=== PATIENT | male | born 1965 | race Caucasian/White ===

== ENCOUNTER 2017-11-13 11:13 | Emergency (ER) | payer BC ==
[~2017-11-13] VITALS: Ht 167.6 cm; Wt 90.7 kg
[~2017-11-13 11:13] MED LIST: ASPIR 8181 MG PO; ATORVASTATIN CA40 MG PO; FOLIC ACID1 MG PO; PROTONIX40 M1 PO; PROZAC20 MG PO; TOPROL XL100 MG PO; TOPROL XL25 MG PO; VITAMIN B-1100 M1 PO
[2017-11-13 11:46] LABS: ABSOLUTE LYMPHOCYTES 2.4 thou/uL (0.8-5.3); ABSOLUTE MONOCYTES 0.4 thou/uL (0.0-1.2); ABSOLUTE NEUTROPHILS 3.6 thou/uL (1.6-8.1); BASOPHILS 0.7 %; EOSINOPHILS 0.6 %; HEMATOCRIT 43.2 % (42.0-52.0); HEMOGLOBIN 14.5 gm/dL (14.0-18.0); LYMPHOCYTES 37.3 %; MCHC 33.6 g/dL (28.0-37.0); MCV 86.1 fL (80.0-100.0); MONOCYTES 5.8 %; MPV 6.8 fl. (7.2-11.1); NUCLEATED RBCS 0 /100WBC; PLATELET COUNT* 327 thou/uL (150-400); POLYS 55.6 %; RBC 5.01 mil/uL (4.50-6.00); RDW-CV 14.2 % (10.5-14.5); WBC 6.5 thou/uL (4.0-11.0)
[2017-11-13 11:52] LABS: CALCIUM 8.7 mg/dL (8.5-10.1); CREATININE 1.1 mg/dL (0.6-1.3); POTASSIUM 3.2 mmol/L (3.5-5.1)
[2017-11-13 11:57] LABS: ALBUMIN 3.9 g/dL (3.4-5.0); TOTAL BILIRUBIN 0.3 mg/dL (<0.1-1.0); TOTAL PROTEIN 7.3 g/dL (6.4-8.2)
[2017-11-13 12:11] LABS: ALCOHOL 299 mg/dL (<10); SALICYLATE < 2.8 mg/dL (2.8-20.0)
[2017-11-13 12:13] LABS: ACETAMINOPHEN < 2 ug/mL (10-30)
[2017-11-13 13:26] LABS: URINE BILIRUBIN NEGATIVE (Negative); URINE BLOOD NEGATIVE (Negative); URINE CLARITY CLEAR; URINE COLOR YELLOW; URINE GLUCOSE-RANDOM NEGATIVE (Negative); URINE KETONES NEGATIVE (Negative); URINE LEUKOCYTES-REFLEX NEGATIVE (Negative); URINE NITRITE-REFLEX NEGATIVE (Negative); URINE PROTEIN NEGATIVE (Negative); URINE UROBILINOGEN 0.2 E.U./dl (0.2-1.0)
[2017-11-13 13:34] LABS: AMP/METHAMP Negative (Negative); BARBITURATES Negative (Negative); BENZODIAZEPINES Negative (Negative); COCAINE Negative (Negative); METHADONE Negative (Negative); OPIATES Negative (Negative); PCP Negative (Negative); THC Negative (Negative)
--- NOTE | 2017-11-13 16:34 | EKG ---
[place] [address] ELECTROCARDIOGRAM REPORT Name: BARBARA BRICEÑO Room: [facility]#: [id number] Admission: 11/13/17 Attend Phys: Discharge: Date of : 69 Report #: [id number] THIS REPORT FOR: //name// [facility] ED Test Date: 2017-11-13 Test Time: 11:21:23 Pat Name: BARBARA BRICEÑO Department: Room: Gender: Security Shift Supervisor: Simin VELIZ : 1965 Requested By: Jeffrey Chilel Order Number: [id number] MD: Jonny Rios Measurements Intervals [place] Rate: 104 P: 33 DC: 187 QRS: 0 QRSD: 104 T: 127 QT: 319 QTc: 420 Interpretive Statements Sinus tachycardia LVH with secondary repolarization abnormality Inferior infarct, old Baseline wander in lead(s) II Compared to ECG 03/13/2017 13:32:25 Left ventricular hypertrophy now present Early repolarization now present Sinus rhythm no longer present Myocardial infarct finding still present Electronically Signed On 11-13-2017 16:33:56 CDT by Jonny Rios [email or web address] <ELECTRONICALLY SIGNED> By: Jonny Rios MD, FACC 11/13/17 1633 [id number] Jonny Rios MD, [facility] /EPI
[2017-11-14 05:35] VITALS: BP 169/92
== END 2017-11-14 05:35 ==
LOC: M.ERS 11:13
PROVIDERS: Emergency Medicine
DX: R45.851 Suicidal ideations (principal)